=== PATIENT | female | born 1990 | race Caucasian/White ===

== ENCOUNTER 2017-01-21 16:30 | Emergency (ER) | payer OTHER ==
[~2017-01-21] VITALS: Ht 165.1 cm; Wt 119.6 kg
[2017-01-21] MEDS ORDERED: BACTRIM,SEPT1 TABLET PO (19:12)
[2017-01-21] MEDS ORDERED: NAPROSYN500 MG PO (20:51)
[2017-01-21 20:59] VITALS: BP 146/91
== END 2017-01-21 21:01 | disposition home or self-care (01) ==
LOC: EME 16:30
PROC: 0H98XZZ Drainage of Buttock Skin, External Approach (ICD-10-PCS; principal; 2017-01-21)
DX: L02.31 Cutaneous abscess of buttock (principal)
CPT/HCPCS: 99281; 99283